=== PATIENT | female | born 1960 | race Caucasian/White ===

== ENCOUNTER 2016-09-29 08:06 | Inpatient (IN) | payer OTHER ==
[~2016-09-29] VITALS: Ht 170.2 cm; Wt 121.3 kg
[2016-09-29] MEDS ORDERED: ALBUTEROL/IPRATROPIUM 2.5MG/0.5MG, 3 ML ONE (08:39)
[2016-09-29] MEDS ORDERED: methylPREDNISolone SOD SUCC 125 MG/2 ML IVP ONE (09:00)
[2016-09-29] MEDS ORDERED: ALBUTEROL/IPRATROPIUM 2.5MG/0.5MG, 3 ML NPPB ONE (09:00)
[2016-09-29] MEDS ORDERED: SODIUM CHLORIDE FLUSH 10ML SYR IVF ONE (09:00)
[2016-09-29 09:09] LABS: HEMOGLOBIN 15.8 g/dL (11.7-16.4)
[2016-09-29] MEDS ORDERED: methylPREDNISolone SOD SUCC 125 MG/2 ML ONE (09:10)
[2016-09-29 09:16] LABS: ASPARTATE AMINO TRANSFERASE 15 U/L (15-37); BLOOD UREA NITROGEN 12 mg/dL (7-18)
[2016-09-29 09:21] LABS: IS PT STATUS REG ER OR PRE ER? YES
[2016-09-29] MEDS ORDERED: SODIUM CHLORIDE FLUSH 10ML SYR IVF PRN (11:30)
[2016-09-29] MEDS ORDERED: FUROSEMIDE 40 MG TABLET PO SCH (12:00)
[2016-09-29] MEDS ORDERED: DOCUSATE 100 MG CAPSULE PO PRN (12:30)
[2016-09-29] MEDS ORDERED: POLYETHYLENE GLYCOL 17 GM PACKET PO PRN (12:30)
[2016-09-29] MEDS ORDERED: BISACODYL 10 MG SUPP PR PRN (12:30)
[2016-09-29] MEDS ORDERED: ONDANSETRON 2MG/ML, 2ML IVP PRN (12:30)
[2016-09-29] MEDS ORDERED: MORPHINE SULFATE 4 MG/ML, 1ML IVPush PRN (12:30)
[2016-09-29] MEDS ORDERED: LORazepam 1MG TABLET PO PRN (12:30)
[2016-09-29] MEDS ORDERED: ENALAPRILAT 1.25 MG/ML, 2ML IVPush PRN (12:30)
[2016-09-29] MEDS ORDERED: ACETAMINOPHEN 325 MG TABLET PO PRN (12:30)
[2016-09-29] MEDS ORDERED: OXYcodone IR 5MG TABLET PO PRN (12:30)
[2016-09-29] MEDS ORDERED: LEVO200T23 PO (14:06)
[2016-09-29 14:08] VITALS: BP 114/77
[2016-09-29] MEDS: FUROSEMIDE 20 MG TABLET PO SCH ×2 (14:47→17:02)
[2016-09-29] MEDS: ENOXAPARIN 40 MG/0.4 ML SQ SCH (14:47)
[2016-09-29] MEDS: FLUTICASONE/VILANTEROL 200-25MCG/INH INH SCH (16:09)
[2016-09-29] MEDS ORDERED: OMNIPAQUE 350 MG/ML, 100ML BOTTLE ONE (17:03)
[2016-09-29 19:04] VITALS: BP 130/80
[2016-09-30 01:12] VITALS: BP 144/81
[2016-09-30 05:07] LABS: ASPARTATE AMINO TRANSFERASE 10 U/L (15-37); BLOOD UREA NITROGEN 15 mg/dL (7-18)
[2016-09-30] MEDS ORDERED: LEVOTHYROXINE 200 MCG TABLET PO SCH (06:00)
[2016-09-30 06:53] VITALS: BP 107/61
[2016-09-30] MEDS ORDERED: LOSARTAN 25MG TABLET PO SCH (09:00)
[2016-09-30] MEDS ORDERED: FUROSEMIDE 40 MG TABLET PO SCH (09:00)
[2016-09-30] MEDS: FUROSEMIDE 20 MG TABLET PO SCH (09:32)
[2016-09-30] MEDS: FLUTICASONE/VILANTEROL 200-25MCG/INH INH SCH (09:33)
[2016-09-30 12:38] VITALS: BP 117/67
[2016-09-30] MEDS ORDERED: FLUT1BLS INH (12:44)
[2016-09-30] MEDS: ENOXAPARIN 40 MG/0.4 ML SQ SCH (15:00)
== END 2016-09-30 18:03 | disposition home or self-care (01) | DRG 189 ==
LOC: ED 11:17 → EDIP 11:18 → ED 11:37 → 3NE 14:01
PROVIDERS: ADMIT Hospitalist; ATTEND Hospitalist
PROC: 0T9B70Z Drainage of Bladder with Drainage Device, Via Natural or Artificial Opening (ICD-10-PCS; principal; 2016-09-30)
DX: J96.01 Acute respiratory failure with hypoxia (principal); J84.9 Interstitial pulmonary disease, unspecified; I50.32 Chronic diastolic (congestive) heart failure; Z68.41 Body mass index [BMI] 40.0-44.9, adult; E66.9 Obesity, unspecified; E06.3 Autoimmune thyroiditis; I51.7 Cardiomegaly; J45.909 Unspecified asthma, uncomplicated; I27.2 Other secondary pulmonary hypertension; Z77.22 Contact with and (suspected) exposure to environmental tobacco smoke (acute) (chronic); Z90.49 Acquired absence of other specified parts of digestive tract; Z79.899 Other long term (current) drug therapy; Z82.49 Family history of ischemic heart disease and other diseases of the circulatory system; Z83.49 Family history of other endocrine, nutritional and metabolic diseases; Z98.890 Other specified postprocedural states
CPT/HCPCS: 36415; 71010; 71275; 80053; 80061; 81001; 83036; 83735; 83880; 84439; 84443; 84484; 85025; 93005; 94640; J1650; J7620; Q9967; J2930